=== PATIENT | male | born 1990 | race Caucasian/White ===

== ENCOUNTER 2020-03-16 00:26 | Emergency (ER) | payer BC, OTHER ==
[2020-03-16] MEDS ORDERED: Dexamethasone 10 MG/ML SDV IM ONE (00:44)
--- NOTE | 2020-03-16 00:51 | EDM.PDOC ---
ED HPI GENERAL MEDICAL PROBLEM - General Chief Complaint: ENT Problem Stated Complaint: SORE THROAT Time Seen by Provider: 03/16/20 00:27 Source of Information: Reports: Patient History Limitations: Reports: No Limitations - History of Present Illness INITIAL COMMENTS - FREE TEXT/NARRATIVE: HISTORY OF PRESENT ILLNESS: Patient is a 30-year-old male who complains of sore throat. States that he called telehealth for sore throat on Thursday and was prescribed penicillin which he has been taking. Sore throat continued and was seen in the clinic today and had a strep test done which was negative as well as COVID 19 testing. No known exposure to COVID or recent travel. He denies any fevers. No chest pain or dyspnea. Denies any rash or abdominal pain. Patient is able to swallow although it is painful. Has been taking Tylenol and Advil reports still feels swollen and hurts to swallow. REVIEW OF SYSTEMS: Other than the symptoms associated with the present events, the following is reported with regard to recent health: General: (-) fever. HENT: (+)sore throat Respiratory: (-) cough. Cardiovascular: (-) chest pain. GI: (-) abdominal pain. : (-) urinary complaints. Musculoskeletal: (-) other aches or pains. Endocrine: (-) generalized weakness. Neurological: (-) localized weakness. Skin: (-) rash PAST MEDICAL HISTORY: reviewed as per nursing notes SOCIAL HISTORY: reviewed as per nursing notes, MEDICATIONS: Per nurse's note ALLERGIES: Per nurse's note, reviewed by me PHYSICAL EXAMINATION: GENERALIZED APPEARANCE: well developed, well nourished in mild distress VITAL SIGNS: Per nurse's note, reviewed by me SKIN: Warm, dry; (-) cyanosis; (-) rash. HEAD: (-) scalp swelling, (-) tenderness. EYES: (-) conjunctival pallor, (-) scleral icterus. ENMT: (-) stridor; mucous membranes moist. pharyngeal erythema. no exudate. uvula midline. no phonation changes. no drooling. speaking in full sentences without apparent difficulty. no swelling to floor of mouth. airway widely patent NECK: (-) tenderness, (-) stiffness, no meningismus CHEST AND RESPIRATORY: (-) rales, (-) rhonchi, (-) wheezes; breath sounds equal bilaterally. HEART AND CARDIOVASCULAR: (-) irregularity; (-) murmur, (-) gallop. ABDOMEN AND GI: Soft; (-) tenderness, (-) guarding, (-) rebound, (-) palpable masses, EXTREMITIES: (-) deformity, (-) edema. NEURO AND PSYCH: Alert. Cranial nerves grossly intact; strength symmetric. gait steady DIAGNOSTICS: mono: neg EMERGENCY DEPARTMENT COURSE AND TREATMENT: Patient's condition remained stable during Emergency Department evaluation. [place] negative. Given Decadron for symptomatic treatment. No evidence/suspicion of STAFF DEVELOPER, epiglottitis, [place] at this time. Based on history, physical exam, and diagnostic evaluation, the patient has symptoms consistent with acute pharyngitis. There is no obvious swelling of the peritonsillar area or abscess. The airway appears patent and respiratory pattern is normal. The patient has no trismus and is tolerating oral food and fluid. I felt that outpatient management with close followup by the patient's primary care provider in 1-2 days was appropriate. The patient's questions were answered, and discharge precautions and reasons to return to the clinic were discussed. The patient understands to return to the ED if symptoms do not improve as discussed, or if symptoms worsen. PLAN AND FOLLOW-UP: Patient received written and verbal instructions regarding this condition. Return to ED immediately with any new or worsening symptoms. Follow up to be arranged by patient with pcp in 1-2 days for further evaluation. Given discharge precautions. patient expressed verbal understanding. - Related Data Allergies Allergy/AdvReac Type Severity Reaction Status Date / Time No Known Allergies Allergy Verified 03/16/20 00:40 Home Meds: Home Meds Penicillin V Potassium 500 mg PO BID 03/16/20 [History] ED ROS ENT - Review of Systems Review Of Systems: See Below (see dictation) ED EXAM, ENT - Physical Exam Exam: See Below (see dictation) Course - Orders/Labs/Meds Orders: Active Orders 24 hr Category Date Time Status dexAMETHasone [Dexamethasone] Med 03/16/20 00:44 Once 10 mg IM ONETIME ONE Departure - Departure Time of Disposition: 00:45 Disposition: Home, Self-Care 01 Condition: Good Clinical Impression: Pharyngitis - Discharge Information *PRESCRIPTION DRUG MONITORING PROGRAM REVIEWED*: Not Applicable *COPY OF PRESCRIPTION DRUG MONITORING REPORT IN PATIENT LAN: Not Applicable Instructions: Pharyngitis, [id number] Referrals: PCP,None [Primary Care Provider] - Trice Ingram [Ordering Only Provider] - 1 Day Additional Instructions: The following information is given to patients seen in the emergency department who are being discharged to home. This information is to outline your options for follow-up care. We provide all patients seen in our emergency department with a follow-up referral. The need for follow-up, as well as the timing and circumstances, are variable depending upon the specifics of your emergency department visit. If you don't have a primary care physician on staff, we will provide you with a referral. We always advise you to contact your personal physician following an emergency department visit to inform them of the circumstance of the visit and for follow-up with them and/or the need for any referrals to a consulting specialist. The emergency department will also refer you to a specialist when appropriate. This referral assures that you have the opportunity for follow-up care with a specialist. All of these measure are taken in an effort to provide you with optimal care, which includes your follow-up. Under all circumstances we always encourage you to contact your private physician who remains a resource for coordinating your care. When calling for follow-up care, please make the office aware that this follow-up is from your recent emergency room visit. If for any reason you are refused follow-up, please contact the [facility] Emergency Department at and asked to speak to the emergency department charge nurse. - My Orders Last 24 Hours: My Active Orders 03/16/20 00:44 dexAMETHasone [Dexamethasone] 10 mg IM ONETIME ONE - Assessment/Plan Last 24 Hours: My Active Orders 03/16/20 00:44 dexAMETHasone [Dexamethasone] 10 mg IM ONETIME ONE
== END 2020-03-16 01:59 | disposition home or self-care (01) ==
LOC: MW.ED 00:26
DX: J02.9 Acute pharyngitis, unspecified (principal)
CPT/HCPCS: 36415; 86308; 96372; 99283; J1100; 99282

== ENCOUNTER 2021-10-22 23:01 | Emergency (ER) | payer BC, OTHER ==
[2021-10-22] MEDS ORDERED: Diphtheria,Pertussis(Acell),Tetanus Vaccine 0.5 ML Syringe IM ONE (23:08)
[2021-10-22] MEDS ORDERED: Bacitracin Oint 1 GM U/D Packet TOP ONE (23:38)
[2021-10-22] MEDS ORDERED: Cephalexin 500 MG Cap PO ONE (23:38)
--- NOTE | 2021-10-22 23:43 | EDM.PDOC ---
ED HPI GENERAL MEDICAL PROBLEM - General Chief Complaint: Laceration Stated Complaint: RT HAND LACERATION Time Seen by Provider: 10/22/21 23:06 - History of Present Illness INITIAL COMMENTS - FREE TEXT/NARRATIVE: HISTORY AND PHYSICAL: History of present illness: This a 31-year-old gentleman who presents ER today secondary to a laceration to his right palmar aspect that occurred prior to arrival. Patient reports that he tripped and fell in his garage and is unsure exactly what his hand got caught on resulting in the laceration. Patient denies any loss of sensory or motor function other than localized around the incision site. Patient denies any foreign body. Patient's tetanus status is not up-to-date. Review of systems: As per history of present illness and below otherwise all systems reviewed and negative. Past medical history: As per history of present illness and as reviewed below otherwise noncontributory. Surgical history: As per history of present illness and as reviewed below otherwise noncontributory. Social history: No reported history of drug abuse. Family history: As per history of present illness and as reviewed below otherwise noncontributory. Physical exam: This patient was seen and evaluated during the 2019 SARS-CoV-2 novel coronavirus pandemic period. Community viral transmission is ongoing at time of this encounter and the emergency department is operating under pandemic response procedures. Constitutional: Patient is oriented to person, place, and time. Appears well- developed and well-nourished. No distress. HEENT: Moist mucous membranes Head: Normocephalic and atraumatic Eyes: Right eye exhibits no discharge. Left eye exhibits no discharge. No scleral icterus Neck: Normal range of motion. No tracheal deviation present. Cardiovascular: Normal rate and regular rhythm. Pulmonary: Effort normal, no respiratory distress. Abdominal: No distention Musculoskeletal: Normal range of motion Neurologic: Alert and oriented to person, place and time. Skin: [place], warm and dry. Psychiatric: Normal mood and affect. Behavior is normal. Judgment and thought content normal. Nursing note and vital signs have been reviewed Patient's ER physical exam is significant for a 5 cm laceration palmar crease of his right hand. Patient is neurovascular intact. Wound was explored with no foreign body identified. Diagnostics: [] Therapeutics: [Tdap 0.5 IM Cephalexin 500 p.o. Bacitracin Assessment and plan: 31-year-old gentleman who presents ER today with a laceration to his left hand. Patient was sutured in the ED, please see suture note. Patient need a wound check in 2 days and suture removal in 10 days. Patient was given a prescription for cephalexin. Patient received Tdap here in the ED. Reassessment at the time of disposition demonstrates that the patient is in no acute distress. The patient has remained stable throughout the entire ED visit and is without objective evidence for acute process requiring urgent intervention or hospitalization. The patient is stable for discharge, counseling is provided as documented above, discussed symptomatic treatment and specific conditions for return. I have spoken with the patient/caregiver and discussed todays findings, in addition to providing specific details for the plan of care. Questions are answered and there is agreement with the plan. Definitive disposition and diagnosis as appropriate pending reevaluation and review of above. Left Hand Pain Score (Numeric/FACES): 6 - Related Data Allergies Allergy/AdvReac Type Severity Reaction Status Date / Time No Known Allergies Allergy Verified 10/22/21 23:09 Home Meds: Home Meds cephALEXin [Keflex] 500 mg PO Q8H #30 cap 10/22/21 [Rx] Past Medical History HEENT History: Reports: None Cardiovascular History: Reports: None Respiratory History: Reports: None Gastrointestinal History: Reports: None Genitourinary History: Reports: None Musculoskeletal History: Reports: None Neurological History: Reports: None Psychiatric History: Reports: None Endocrine/Metabolic History: Reports: None Insulin Pump Model and Brake Adjuster: None Hematologic History: Reports: None Oncologic (Cancer) History: Reports: None Dermatologic History: Reports: None - Infectious Disease History Infectious Disease History: Reports: None Social & Family History - Family History Family Medical History: No Pertinent Family History - Tobacco Use Tobacco Use Status *Q: Never Tobacco User - Caffeine Use Caffeine Use: Reports: Coffee - Recreational Drug Use Recreational Drug Use: No ED ROS GENERAL - Review of Systems Review Of Systems: See Below ED EXAM, SKIN/RASH Exam: See Below ED SKIN PROCEDURES - Laceration/Wound Repair Right Hand Appearance: Subcutaneous Distal NVT: Neuro & Vascular Intact, No Tendon Injury Anesthetic Type: Local Local Anesthesia - Lidocaine (Xylocaine): 1% Plain Local Anesthetic Volume: 5cc Skin Prep: Chlorhexidine (Hibiciens), Saline Saline Irrigation (cc's): 2,000 Exploration/Debridement/Repair: Wound Explored, No Foreign Material Found Closed with: Sutures Lac/Wound length In cm: 5 Suture Size: 4-0 # of Sutures: 10 Suture Type: Nylon, Interrupted, Simple Drain Placement: No Sterile Dressing Applied: Nurse Tetanus Status Addressed: Yes Complications: No Course - Vital Signs Last Recorded V/S: Last Vital Signs Temp 97.2 F 10/22/21 23:09 Pulse 77 10/22/21 23:09 Resp 16 10/22/21 23:09 BP 129/94 H 10/22/21 23:09 Pulse Ox 96 10/22/21 23:09 - Orders/Labs/Meds Orders: Active Orders 24 hr Category Date Time Status Vaccine to be Administered/Admin Charge [RC] ASDIRECTED Care 10/22/21 23:08 Active Bacitracin [Bacitracin Oint 1 GM] Med 10/22/21 23:38 Once 4 dose TOP ONETIME ONE cephALEXin [Keflex] Med 10/22/21 23:38 Once 500 mg PO ONETIME ONE Meds: Medications Discontinued Medications Generic Name Dose Route Start Last Admin Trade Name Nini PRN Reason Stop Dose Admin Diphtheria/Tetanus/Acell Pertussis 0.5 ml 10/22/21 23:08 10/22/21 23:25 Diphtheria,Pertussis(Acell),Tetanus Vaccine 0.5 Ml Syringe IM 10/22/21 23:09 0.5 ml .ONCE ONE Administration Lidocaine HCl 10 ml 10/22/21 23:08 10/22/21 23:26 Lidocaine 1% 5 Ml Sdv INJECT 10/22/21 23:09 10 ml ONETIME ONE Administration Departure - Departure Time of Disposition: 23:42 Disposition: Home, Self-Care 01 Condition: Good Clinical Impression: Laceration with foreign body of right hand, initial encounter - Discharge Information Instructions: Laceration Care, Adult, Sutures, [place], or Adhesive Wound Closure, [id number] Additional Instructions: Your seen and evaluated in the ER today secondary to a laceration to your right hand. You had 10 sutures placed. You will need a wound check in 2 days if any signs of infection please come to the ER for it. You can have your sutures removed in 10 days. Please return to the ER if you start developing any redness, increased swelling drainage or odor from the wound. You have been given a prescription for cephalexin to take 3 times a day for the next 10 days. The following information is given to patients seen in the emergency department who are being discharged to home. This information is to outline your options for follow-up care. We provide all patients seen in our emergency department with a follow-up referral. The need for follow-up, as well as the timing and circumstances, are variable depending upon the specifics of your emergency department visit. If you don't have a primary care physician on staff, we will provide you with a referral. We always advise you to contact your personal physician following an emergency department visit to inform them of the circumstance of the visit and for follow-up with them and/or the need for any referrals to a consulting specialist. The emergency department will also refer you to a specialist when appropriate. This referral assures that you have the opportunity for follow-up care with a specialist. All of these measure are taken in an effort to provide you with optimal care, which includes your follow-up. Under all circumstances we always encourage you to contact your private physician who remains a resource for coordinating your care. When calling for follow-up care, please make the office aware that this follow-up is from your recent emergency room visit. If for any reason you are refused follow-up, please contact the [facility] Emergency Department at and asked to speak to the emergency department charge nurse. [facility] - Primary Care [address] [place] [address] [place] [address] Sepsis Event Note (ED) - Evaluation Sepsis Screening Result: No Definite Risk - Focused Exam Vital Signs: Vital Signs Temp Pulse Resp BP Pulse Ox 10/22/21 23:09 97.2 F 77 16 129/94 H 96 - My Orders Last 24 Hours: My Active Orders 10/22/21 23:08 Vaccine to be Administered/Admin Charge [RC] ASDIRECTED 10/22/21 23:38 Bacitracin [Bacitracin Oint 1 GM] 4 dose TOP ONETIME ONE cephALEXin [Keflex] 500 mg PO ONETIME ONE - Assessment/Plan Last 24 Hours: My Active Orders 10/22/21 23:08 Vaccine to be Administered/Admin Charge [RC] ASDIRECTED 10/22/21 23:38 Bacitracin [Bacitracin Oint 1 GM] 4 dose TOP ONETIME ONE cephALEXin [Keflex] 500 mg PO ONETIME ONE
== END 2021-10-23 00:05 | disposition home or self-care (01) ==
LOC: MW.ED 23:01
DX: S61.421A Laceration with foreign body of right hand, initial encounter (principal); Z23 Encounter for immunization; W01.198A Fall on same level from slipping, tripping and stumbling with subsequent striking against other object, initial encounter; Y92.59 Other trade areas as the place of occurrence of the external cause
CPT/HCPCS: 12002; 90471; 90715; 99282; A9270